=== PATIENT | female | born 1975 | race American Indian/Alaskan Native ===

== ENCOUNTER 2020-10-03 22:06 | Emergency (ER) | payer OTHER ==
--- NOTE | 2020-10-04 00:21 | Vascular Lab Report ---
DUPLEX DOPPLER LOWER EXTREMITY VEINS, RIGHT INDICATION / CLINICAL INFORMATION: pain at R leg. TECHNIQUE: Duplex doppler imaging was performed through the veins of the right lower extremity using venous comp ression and other maneuvers. COMPARISON: None available. FINDINGS: RIGHT COMMON FEMORAL VEIN: Negative. RIGHT FEMORAL VEIN: Negative. RIGHT POPLITEAL VEIN: Negative. RIGHT CALF VEINS: Negative. ADDITIONAL FINDINGS: None. IMPRESSION: 1. No sonographic evidence for DVT in the right lower extremity. Signer Name: Kade Griggs MD Signed: 10/04/2020 12:17 AM Workstation Name: [id number]
--- NOTE | 2020-10-04 01:39 | Emergency Department Report ---
HPI - General Chief Complaint: Extremity Injury, Lower Time Seen by Provider: 10/04/20 01:28 - HPI HPI: This is a 45-year-old -[place] female presents to the emergency department with the complaint of a 1 day history of pain to the back of the rig ht leg from the knee down through the calf. She also feels that the area is slightly swollen. She denies any fall, trauma, injury, or known inciting event. She has not taken anything for her symptoms prior to presentation. She says that the pain is currently about a 5 out of 10 in intensity. No known aggravating or alleviating factors. She called her primary care physician's office and was told to come to the emergency department to rule out a DVT. No past medical history other than a previous cholecystectomy and previous C- sections. No recent travel or sick contacts at home. She denies any skin color change, rash or lesions, fever. ED Past Medical Hx - Past Medical History Previous Medical History?: No - Surgical History Past Surgical History?: Yes Hx Cholecystectomy: Yes Additional Surgical History: 3 C-sections - Social History Smoking Status: Never Smoker Substance Use Type: None ED Review of Systems ROS: Stated complaint: EVAL FOR DVT Other details as noted in HPI Comment: All other systems reviewed and negative Constitutional: denies: chills, fever Eyes: denies: eye pain, vision change ENT: denies: ear pain, throat pain Respiratory: denies: cough, shortness of breath Cardiovascular: denies: chest pain, palpitations Gastrointestinal: denies: abdominal pain, nausea Genitourinary: denies: dysuria, discharge Musculoskeletal: myalgia. denies: back pain Skin: denies: rash, lesions Neurological: denies: numbness, paresthesias Physical Exam - Physical Exam Vital Signs: Vital Signs 10/03/20 10/03/20 22:57 22:59 Temperature 97.8 F Pulse Rate 105 H Blood Pressure 178/91 O2 Sat by Pulse 97 Oximetry Physical Exam: GENERAL: The patient is well-developed well-nourished. HENT: Normocephalic. Atraumatic. Patient has moist mucous membranes. EYES: Extraocular motions are intact. NECK: Supple. Trachea is midline. CHEST/LUNGS: Clear to auscultation. There is no respiratory distress noted. HEART/CARDIOVASCULAR: Regular. There is no tachycardia. There is no murmur. ABDOMEN: Abdomen is soft, nontender. Patient has normal bowel sounds. Morbidly obese habitus. SKIN: Skin is warm and dry. No swelling or edema, erythema, rash, lesions, to the affected right lower extremity. NEURO: The patient is awake, alert, and oriented. The patient is cooperative. The patient has no focal neurologic deficits. Normal speech. MUSCULOSKELETAL: There is some reproducible posterior right knee and right calf tenderness to palpation. No deformity. There is no limitation range of motion. ED Course Vital Signs 10/03/20 10/03/20 22:57 22:59 Temperature 97.8 F Pulse Rate 105 H Blood Pressure 178/91 O2 Sat by Pulse 97 Oximetry ED Medical Decision Making - Radiology Data Radiology results: report reviewed DUPLEX DOPPLER LOWER EXTREMITY VEINS, RIGHT INDICATION / CLINICAL INFORMATION: pain at R leg. TECHNIQUE: Duplex doppler imaging was performed through the veins of the right lower extremity using venous compression and other maneuvers. COMPARISON: None available. FINDINGS: RIGHT COMMON FEMORAL VEIN: Negative. RIGHT FEMORAL VEIN: Negative. RIGHT POPLITEAL VEIN: Negative. RIGHT CALF VEINS: Negative. ADDITIONAL FINDINGS: None. IMPRESSION: 1. No sonographic evidence for DVT in the right lower extremity. - Medical Decision Making This patient presents with a few days of posterior right knee pain and right calf pain. Venous Doppler ultrasound was negative for DVT. On examination there are no obvious deformities. No erythema, rash, lesions. The patient has full range of motion and is able to bear weight and ambulate. There is no known trauma, fall, injury. Therefore, I did not feel that x-ray imaging was necessary. She appears neurovascularly intact. Patient will be discharged home to follow-up with an orthopedist and will return to the emergency department with any worsening of her symptoms or with any acute distress. Critical Care Time: No Critical care attestation.: If time is entered above; I have spent that time in minutes in the direct care of this critically ill patient, excluding procedure time. ED Disposition Clinical Impression: Posterior right knee pain, Right calf pain Hypertension Qualifiers: Hypertension type: essential hypertension Qualified Code(s): I10 - Essential (primary) hypertension Disposition: - TO HOME OR SELFCARE Is pt being admited?: No Condition: Stable Instructions: Acute Knee Pain, Adult, Musculoskeletal Pain, Hypertension (ED) Additional Instructions: Please follow-up with your primary care physician in the next few days. I have given you a referral for a local orthopedist, Dr. Lamas, to follow-up regarding your knee and calf pain. Return to the emergency department with any worsening of your symptoms, new or concerning symptoms not addressed during this current emergency department visit, or with any acute distress. Referrals: JOEY LAMAS MD [Staff Physician] - 2-3 Days Time of Disposition: 01:39
[2020-10-04 02:13] VITALS: BP 167/98
== END 2020-10-04 02:08 | disposition home or self-care (01) ==
LOC: ED 22:06
DX: M25.561 Pain in right knee (principal); M79.604 Pain in right leg; I10 Essential (primary) hypertension; Z90.49 Acquired absence of other specified parts of digestive tract; Z98.890 Other specified postprocedural states